=== PATIENT | male | born 1970 | race Caucasian/White ===

== ENCOUNTER 2022-06-09 09:49 | Day surgery (SDC) | payer BC, SELFPAY ==
[2022-06-09] VITALS (25 sets, daily range): BP systolic 120–153; BP diastolic 70–99; PULSE 58–100; RESP 12–18; TEMP 36.5–37; O2SAT 90–100
[2022-06-09] MEDS: LACTATED RINGERS 1000 ML 1,000 ML 100 ML IV (10:35)
[2022-06-09] MEDS: OXYMETAZOLINE 0.05% NASAL SPRAY 2 SPRAY NOSTRIL-B (10:35)
[2022-06-09] MEDS: SODIUM CHLORIDE 0.9 % (FLUSH) 10 ML SYRINGE IVF (10:35)
[2022-06-09] MEDS: COCAINE HCL 4 % 4 ML SOLUTION NOSTRIL-B (11:43)
[2022-06-09] MEDS: BUPIVACAINE 0.5%/EPINEPHRINE 0.9 MG (30.9 ML) INJECTION (11:48)
[2022-06-09] MEDS: MUPIROCIN 1 GM PACKET 1 APPLIC TOPICAL (12:15)
--- NOTE | 2022-06-09 12:31 | W.PM.ENTPROC ---
Procedure Note Date of procedure: 06/09/22 Procedure: Pre preoperative diagnosis deviated septum inferior turbinate hypertrophy chronic ethmoid and maxillary rhinosinusitis left serous otitis media possible right serous otitis media, obstructive sleep apnea Postoperative diagnosis same with the exception of right middle ear was clear do line procedure left myringotomy with tube, inspection right ear, nasal septoplasty, submucous partial resection inferior turbinates bilateral, endoscopic bilateral complete ethmoidectomy, endoscopic bilateral maxillary antrostomy with tissue removal. Under general endotracheal anesthesia patient was prepped and draped in usual fashion. The image guidance system did not register so the procedure was done with the assistance of a 0 degree endoscope. A right hemitransfixion incision was made left anterior and posterior tunnels were created. A vertical incision was made through the cartilage and a right posterior tunnel created. A cut was made above and below the deflected portions of septal bone and cartilage this piece was removed with the [place] forceps trimmed and returned to the posterior intraseptal space. There was a left premaxillary wing deformity that was infractured. Septum was now midline. A stab incision was made in the anterior head of the right inferior turbinate and a tunnel created with a [place] dissector. The dejuan bone was outfractured and a conservative anterior submucous resection performed with an ethmoid forceps. The Coblation Wand used for hemostasis and to cauterize intramurally at the inferior 10%. This was repeated on the left side in identical fashion. The uncinate process on the left was identified and the inferior 4th removed with micro backbiter. This exposed the natural ostium to maxillary sinus which was occluded by polypoid tissue this was removed with an ethmoid forceps. A 9 mm antrostomy was created and then the fluid was aspirated from the sinus as well as some polypoid mucosa was removed with an upbiting ethmoid forceps. This was repeated on the right side in identical fashion with identical findings. Attention was returned to the left side in the left ethmoid bulla was taken down and dissection carried out in an anterior to posterior direction opening the anterior and posterior ethmoid cells and removing a moderate to large amount of polypoid mucosa and inspissated mucus. This area was then packed with cocaine pledgets and attention returned to the right ethmoid. The ethmoid bulla was taken down and dissection carried out in an anterior to posterior direction removing a small to moderate amount of polypoid material and some inspissated mucus. The left side appeared to be worse than the right. The hemitransfixion was closed with 2 4-0 chromic sutures and stents placed and secured with 3-0 nylon. A Merocel pack was trimmed likewise coated in Bactroban and placed in the middle meatus on each side followed by a dissolvable pack. The left ear was inspected an inferior radial myringotomy incision was made. A large amount of serous fluid was aspirated and a Duravent tube placed followed by Ciprodex drops. The right canal was inspected but the middle ear appeared to be normal and so no tube was placed. The patient was extubated in the operating room taken recovery in satisfactory condition. Blood loss less than 50 mL. There were no complications Surgeon: Jourdan Fabian MD
--- NOTE | 2022-06-09 12:39 | SUR.OPER ---
PATIENT QUESTIONS ANSWERED SATISFACTORILY PREOPERATIVELY. PATIENT BROUGHT TO OR #2 PER CART. Patient positioned supine on OR #2 bed. ? Perioperative team tucked arms bilaterally at patient side with drawsheet. ? Final approval of positioning by surgeon.
[2022-06-09] MEDS: AYR SALINE NASAL GEL 1 APPLIC NOSTRIL-B (13:02)
[2022-06-09] MEDS: fentaNYL 100 MCG/2 ML inj 50 MCG IVP ×2 (13:07→13:18)
--- NOTE | 2022-06-09 13:12 | W.ANESCHARGE ---
Anesthesia Charges Start Date/Time Anesthesia Start Date: 06/09/22 Anesthesia Start Time: 11:24 Stop Date/Time Anesthesia Stop Date: 06/09/22 Anesthesia Stop Time: 12:47 Summary Emergency: No
[2022-06-09] MEDS: OXYCODONE 5 MG TABLET PO ×2 (14:31→18:30)
[2022-06-09] MEDS: cephALEXin 250 MG CAPSULE PO ×2 (14:54→20:39)
[2022-06-09] MEDS: ACETAMINOPHEN 325 MG TABLET PO ×2 (15:02→18:30)
--- NOTE | 2022-06-09 18:03 | PC.NURSE ---
Pt. up to floor at 1345. Pt. alert and oriented x4, pleasant and cooperative. is at bedside. Surgery was supposed to be same day but pt. has sleep apnea and MD wanted pt. to be admitted for an overnight stay. Pt. wears CPAP but did not bring machine. Dressing to nose is C/D/I. Needs to be changed if becomes saturated. Pt. initially needed 2 L NC but currently on RA sating 93-95%. VSS, pt. voided x2, ambulated hallway independently. PO adequate and IV in left hand is saline locked. Pt. tolerated ice chips, water and food. Denies any N/V. Pt. rated pain 6/10 PRN Oxy and Acetaminophen administered w/relief. Discharge packet complete and waiting to be signed on pt's. folder. will be here as earliest as 5am to pick him up.
[2022-06-10 03:00] VITALS: BP 133/96; PULSE 75; RESP 18; TEMP 36.6; O2SAT 99
[2022-06-10] MEDS: OXYCODONE 5 MG TABLET PO (03:39)
--- NOTE | 2022-06-10 05:13 | PC.NURSE ---
PT WAS PLEASANT AND COOPERATIVE. AMBULATES INDEPENDENTLY. VSS ON RA; AFEBRILE. LS CTA. DENIES CP, SOB, N/V. DRESSING CDI. PT C/O SORE THROAT 11/13; PT WAS ENCOURAGED TO DRINK WATER. PT LIGHTLY SLEPT ON/OFF THROUGH NIGHT. UNEVENTFUL SHIFT.
--- NOTE | 2022-06-10 05:35 | PC.NURSE ---
Discharge instructions gone over with pt. He verbalized understanding. Scripts sent to [facility] in [place]. had picked them up yesterday. IV dc'd with catheter intact and site without s/s of infection. Pt dc'd to home with .
== END 2022-06-10 05:25 | disposition home or self-care (01) ==
LOC: OR 09:50 → MEDSURG 09:54
PROVIDERS: PCP Family Medicine; Visit Provider Otolaryngology
PROC: (CPT 31231; principal; 2022-06-09 11:00)
PROC: (CPT 69420; 2022-06-09 11:00)
DX: J34.2 Deviated nasal septum (principal); J34.3 Hypertrophy of nasal turbinates; J32.2 Chronic ethmoidal sinusitis; J32.0 Chronic maxillary sinusitis; G47.33 Obstructive sleep apnea (adult) (pediatric); H65.92 Unspecified nonsuppurative otitis media, left ear
CPT/HCPCS: 69436; 30520; 30140; 31255; 31267; 160; 88305; 88311; A9270; J0330; J1170; J2250; J2704; J3010; J7120